=== PATIENT | female | born 1955 | race Caucasian/White ===

== ENCOUNTER 2021-09-12 07:21 | Day surgery (SDC) | payer BC ==
[2021-09-12] MEDS ORDERED: Ringers Lactate 1,000 ML IV ONE (08:35)
[2021-09-12] MEDS ORDERED: propofoL 200 MG/20 ML VIAL IV ONE ×2 (08:44)
[2021-09-12] MEDS ORDERED: LIDOCAINE 1% MPF 5 ML VIAL ONE (08:44)
[2021-09-12 10:58] VITALS: TEMP 97.3
[2021-09-12 11:00] VITALS: BP 139/70; O2SAT 100
== END 2021-09-12 10:20 | disposition home or self-care (01) ==
LOC: OR 07:21
PROVIDERS: ATTEND Surgery
PROC: 0DBN8ZX Excision of Sigmoid Colon, Via Natural or Artificial Opening Endoscopic, Diagnostic (ICD-10-PCS; principal; 2021-09-12 09:15)
DX: Z12.11 Encounter for screening for malignant neoplasm of colon (principal); K63.5 Polyp of colon; K64.8 Other hemorrhoids; K64.4 Residual hemorrhoidal skin tags; Z20.822 Contact with and (suspected) exposure to COVID-19
CPT/HCPCS: 82947; 88305; 45380; U0003; J2704; J7120